=== PATIENT | female | born 1970 | race African-American/Black ===

== ENCOUNTER 2017-01-04 17:10 | Emergency (ER) | payer MEDICAID, OTHER ==
[~2017-01-04] VITALS: Ht 162.6 cm; Wt 84.1 kg
[~2017-01-04 17:10] MED LIST: ALBU8HFA IH; ASPI-556 PO; ATOR40TA71 PO; BACL10TA PO; FLUT16H NASAL; FURO20 PO; GABA-531 PO; ISOS20TA7 PO; LAMO25 PO; METF500T4 PO; METH2.5 PO; METO50 PO; MIRT15 PO; OMEP10 PO; OXYC-43 PO; PARO20TA24 PO
[2017-01-04 17:11] VITALS: BP 138/84
== END 2017-01-04 18:31 | disposition left against medical advice (07) ==
LOC: EMS 17:11
DX: R07.9 Chest pain, unspecified (principal); J44.9 Chronic obstructive pulmonary disease, unspecified; E78.00 Pure hypercholesterolemia, unspecified; F17.210 Nicotine dependence, cigarettes, uncomplicated; Z76.0 Encounter for issue of repeat prescription; Z53.21 Procedure and treatment not carried out due to patient leaving prior to being seen by health care provider
CPT/HCPCS: 93005; 99281

== ENCOUNTER 2018-09-24 00:39 | Emergency (ER) | payer MEDICAID ==
[~2018-09-24] VITALS: Ht 162.6 cm; Wt 77.3 kg
[~2018-09-24 00:39] MED LIST changes: +METF-960 PO; -METF500T4 PO
[2018-09-24 00:46] VITALS: BP 128/90
[2018-09-24 00:59] LABS: GLUCOSE,POINT OF CARE 100 MG/DL (70-110)
[2018-09-24] MEDS ORDERED: MONT10TA21 PO (01:01)
[2018-09-24] MEDS ORDERED: INSLAN SQ (01:01)
[2018-09-24] MEDS ORDERED: FOLI1 PO (01:01)
== END 2018-09-24 03:03 | disposition left against medical advice (07) ==
LOC: EMS 00:41
DX: L93.0 Discoid lupus erythematosus (principal); Z53.21 Procedure and treatment not carried out due to patient leaving prior to being seen by health care provider

== ENCOUNTER 2018-09-24 05:25 | Emergency (ER) | payer MEDICAID, OTHER ==
[~2018-09-24] VITALS: Ht 162.6 cm; Wt 95.5 kg
[~2018-09-24 05:25] MED LIST changes: +FOLI1 PO; +INSLAN SQ; +MONT10TA21 PO
[2018-09-24] MEDS ORDERED: ACETAMINOPHEN 500 MG TABLET PO ONE (08:15)
[2018-09-24] MEDS ORDERED: MAG HYDROX/AL HYDROX/SIMETH ES 30 ML SUSPENSION UDCUP PO ONE (08:15)
[2018-09-24] MEDS ORDERED: MethylPREDNISolone SOD SUCC 125 MG/2 ML VIAL IM ONE (08:30)
[2018-09-24 08:38] LABS: EOSINOPHILS % (AUTO) 3.6 % (1.0-6.0); HEMATOCRIT 38.7 % (36-46); LYMPHOCYTES # (AUTO) 2.2 K/uL (1.0-4.8); LYMPHOCYTES % (AUTO) 34.7 % (22.0-44.0); MEAN CORPUSCULAR HEMOGLOBIN 30.2 pg (26.0-34.0); MEAN CORPUSCULAR HGB CONC 33.6 G/dL (31.0-37.0); MEAN CORPUSCULAR VOLUME 90 fL (80-100); MONOCYTES # (AUTO) 0.4 K/uL (0.1-1.0); MONOCYTES % (AUTO) 6.7 % (2.0-9.0); NEUTROPHILS # (AUTO) 3.4 K/uL (1.8-7.7); PLATELET COUNT (AUTO) 250 K/uL (150-450); RED BLOOD CELL COUNT(AUTO) 4.31 MIL/uL (4.00-5.20); RED CELL DISTRIBUTION WIDTH 13.8 % (11.5-14.5)
[2018-09-24 08:58] LABS: ANION GAP 4 mmol/L (8-16); CALCIUM, TOTAL 9.2 mg/dL (8.8-10.5); CARBON DIOXIDE 27 mmol/L (22-29); CHLORIDE 105 mmol/L (98-107); CREATININE 0.85 mg/dL (0.60-1.30); GLOMERULAR FILTR. RATE CALC > 60 mL/min (>60); GLUCOSE,RANDOM 119 mg/dL (70-110); POTASSIUM 3.5 mmol/L (3.5-5.1); SODIUM SERUM 136 mmol/L (136-145); UREA NITROGEN, BLOOD 10 mg/dL (7-18)
[2018-09-24 09:20] LABS: ALANINE AMINOTRANSFERASE 17 U/L (12-78); ALKALINE PHOSPHATASE 84 U/L (46-116); ASPARTATE AMINOTRANSFERASE 15 U/L (15-37); BILIRUBIN,TOTAL 0.3 mg/dL (0.1-1.0); HCG,QUANTITATIVE 1 mIU/mL (0-6)
[2018-09-24 09:46] VITALS: BP 102/63
== END 2018-09-24 09:50 | disposition home or self-care (01) ==
LOC: EMS 05:27
DX: L93.0 Discoid lupus erythematosus (principal); G89.29 Other chronic pain; M25.512 Pain in left shoulder; M79.604 Pain in right leg; M79.605 Pain in left leg; F32.9 Major depressive disorder, single episode, unspecified; I10 Essential (primary) hypertension; E78.00 Pure hypercholesterolemia, unspecified; J44.9 Chronic obstructive pulmonary disease, unspecified; F17.210 Nicotine dependence, cigarettes, uncomplicated; Z88.0 Allergy status to penicillin; Z88.6 Allergy status to analgesic agent; Z79.82 Long term (current) use of aspirin; Z79.899 Other long term (current) drug therapy
CPT/HCPCS: 36415; 80053; 84702; 85025; 96372; 99283; 99406; J2930